=== PATIENT | male | born 1970 | race African-American/Black ===

== ENCOUNTER 2018-11-22 15:34 | Emergency (ER) | payer OTHER ==
[2018-11-22] MEDS: LIDOCAINE 2% (MDV) 20 ML INJ INJ (16:31)
[2018-11-22] MEDS: KETOROLAC 30 MG INJ IM (16:31)
== END 2018-11-22 17:37 | disposition home or self-care (01) ==
LOC: FTE 15:34
DX: S61.211A Laceration without foreign body of left index finger without damage to nail, initial encounter (principal); S61.012A Laceration without foreign body of left thumb without damage to nail, initial encounter; W26.0XXA Contact with knife, initial encounter; Y92.9 Unspecified place or not applicable; Z21 Asymptomatic human immunodeficiency virus [HIV] infection status
CPT/HCPCS: 12001; 96372; 99284-25